=== PATIENT | male | born 2005 | race Caucasian/White ===

== ENCOUNTER 2023-03-30 12:15 | Emergency (ER) | payer MEDICAID ==
[~2023-03-30] VITALS: Ht 177.8 cm; Wt 64.0 kg
[2023-03-30 12:30] VITALS: BP_SYST 116; PULSE 67; RESP 18; TEMP 98.2; O2SAT 100
[2023-03-30] MEDS ORDERED: IBUP-1969 PO (13:33)
[2023-03-30 14:38] VITALS: BP_SYST 116; PULSE 67; RESP 18; TEMP 98.2; O2SAT 100
== END 2023-03-30 14:37 | disposition home or self-care (01) ==
LOC: SED 12:15
DX: S62.396A Other fracture of fifth metacarpal bone, right hand, initial encounter for closed fracture (principal); Z79.899 Other long term (current) drug therapy; W21.89XA Striking against or struck by other sports equipment, initial encounter; Y93.71 Activity, boxing; Y92.89 Other specified places as the place of occurrence of the external cause; Y99.8 Other external cause status
CPT/HCPCS: 99283